=== PATIENT | female | born 1980 | race American Indian/Alaskan Native ===

== ENCOUNTER 2016-08-02 21:54 | Inpatient (IN) | payer MEDICAID ==
--- NOTE | 2016-08-02 22:33 | History and Physical Report ---
History of Present Illness Date of examination: 08/02/16 Chief complaint: ?Gestational DM at unsure date History of present illness: 35-year-old 017 at 33+3 wks (oral hx of FRANSISCO 09/17/16) presents from the office, she is a [facility] [employer] patient and I currently do not have any records. 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 She was asked to present to the hospital yesterday but due to social issues could not, she presents today. She has an oral history of being seen by [facility] for morbid obesity ~ 1 week ago. She was told infant was 36 weeks gestation, M was unaware of her diagnosis of gestational diabetes. She has an oral history of Gestational diabetes with her sixth , her seventh was apparently unremarkable. She has a history of suicide attempt with her second , she has a large vertical incisional scar on her abdomen from the attempt Past History Past Medical History: no pertinent history. 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 denies: gonorrhea, hepatitis B, hepatitis C, herpes, HIV, syphilis, trichomonas Social history: smoking, full code. denies: alcohol abuse, prescription drug abuse, IV drug use - Obstetrical History Expected Date of Delivery: 09/17/16 Actual Gestation: 33 Week(s) 3 Day(s) : 9 Para: 7 Medications and Allergies Allergies Allergy/AdvReac Type Severity Reaction Status Date / Time No Known Allergies Allergy Unverified 09/28/13 18:24 Home Medications Medication Instructions Recorded Confirmed Last Taken Type No Known Home Medications [No 09/29/13 09/29/13 Unknown History Reported Home Medications] Review of Systems Constitutional: no fever, no chills Eyes: no diplopia, no blind spots Cardiovascular: no chest pain, no syncope, no lightheadedness, no shortness of breath, no dyspnea on exertion, no high blood pressure Respiratory: no shortness of breath, no dyspnea on exertion Gastrointestinal: no abdominal pain, no nausea, no vomiting Genitourinary: no vaginal bleeding, no vaginal discharge, no contractions - Vital Signs Vital signs: Vital Signs Pulse BP 110 H 134/72 08/02/16 22:17 04/06/17 22:17 Temp Pulse Resp BP Pulse Ox 110 H 134/72 08/02/16 22:17 08/02/16 22:17 - Physical Exam Cardiovascular: Regular rate, Normal S1, Normal S2 Lungs: Positive: Clear to auscultation, Normal air movement Abdomen: Positive: normal appearance, soft. Negative: tenderness Uterus: Positive: other (unable to medical imaging technologist uterine size due to morbid obesity) Results All other labs normal. Assessment and Plan A: 35-year-old at ?33+3 weeks here for observation Issues -Obesity (BMI 62) -Grand multipara -Suspected gestational diabetes -Noncompliance suspected -Unsure gestational age P: -CMP, CBC now, POC -Growth scan and BPP -UDS -Desires permanent sterilization, signed consent -Disposition after results available - Patient Problems (1) 33 weeks gestation of Current Visit: Yes Status: Acute (2) Morbid obesity with BMI of 60.0-69.9, adult Current Visit: Yes Status: Acute (3) Grand multipara in labor in third trimester Current Visit: Yes Status: Acute (4) Gestational diabetes mellitus (GDM) affecting Current Visit: Yes Status: Suspected (5) Non-compliant patient Current Visit: Yes Status: Suspected Qualifiers: Trimester: T
[2016-08-02] MEDS ORDERED: D50W (25GM) IV PRN (22:46)
[2016-08-02 22:56] LABS: Basophils % (Auto) 0.2 % (0.0-1.8); Hemoglobin 8.8 gm/dl (10.1-14.3); Mean Corpuscular HGB Conc 32 % (30-34); Platelet Count 265 K/mm3 (140-440); Red Blood Count 4.04 M/mm3 (3.65-5.03); White Blood Count 8.6 K/mm3 (4.5-11.0)
[2016-08-02 23:01] LABS: Mean Corpuscular Volume 69 fl (79-97)
[2016-08-02 23:02] LABS: Mean Corpuscular Hemoglobin 22 pg (28-32); Red Cell Distribution Width 23.9 % (13.2-15.2)
[2016-08-02 23:03] LABS: Urine Drugs of Abuse Note Disclamer
[2016-08-02 23:13] LABS: Uric Acid 3.9 mg/dL (3.5-7.6)
[2016-08-02 23:15] LABS: Bilirubin,Urine NEG (Negative); Blood,Urine NEG (Negative); Ketones,Urine TR mg/dL (Negative); Leukocyte Esterase,Urine NEG (Negative); Mucus,Urine FEW /HPF; Nitrite,Urine NEG (Negative); RBC,Urine < 1.0 /HPF (0.0-6.0); Urobilinogen,Urine < 2.0 mg/dL (<2.0); WBC,Urine < 1.0 /HPF (0.0-6.0)
[2016-08-03 00:17] LABS: Alanine Aminotransferase 10 units/L (7-56); Albumin 2.8 g/dL (3.9-5); Albumin/Globulin Ratio 0.8 %; Alkaline Phosphatase 114 units/L (35-129); Anion Gap 18 mmol/L; BUN/Creatinine Ratio 8.33; Bilirubin,Total 0.3 mg/dL (0.1-1.2); Blood Urea Nitrogen 5 mg/dL (7-17); Calcium 8.2 mg/dL (8.4-10.2); Carbon Dioxide 22 mmol/L (22-30); Chloride 96.6 mmol/L (98-107); Glucose 273 mg/dL (65-100); Potassium 3.4 mmol/L (3.6-5.0); Sodium 133 mmol/L (137-145); Total Protein 6.4 g/dL (6.3-8.2)
[2016-08-03] MEDS ORDERED: D50W (25GM) IV PRN ×2 (04:48→04:59)
[2016-08-03] MEDS ORDERED: DIABETA PO SCH (08:00)
--- NOTE | 2016-08-03 08:02 | Admit Criteria Form ---
Admission Criteria Documentation: OBSTETRIC AND GYNECOLOGIC DISEASE GRG Clinical Indications for Admission to Inpatient Care (Place 'X' for any and all applicable criteria): Hospital admission is needed for appropriate care of the patient because of 1 or more of the following (1)(2)(3): [ ]I. Hemodynamic instability, as indicated by 1 or more of the following (1)( 2)(3)(4)(5): [ ]a) Vital signs or other findings not as expected for chronic patient condition or baseline [ ]b) Instability indicated by 1 or more of the following: [ ]i) Hypotension [ ]ii) Symptomatic tachycardia unresponsive to treatment (eg, analgesia, fluids, sedation as indicated) [ ]iii) Inadequate perfusion indicated by 1 or more of the following: [ ]A. Lactic acidosis (greater than 2 mmol/ L) [ ]B. New abnormal capillary refill ( greater than 3 seconds) [ ]C. Reduced urine output [ ]D. New altered mental status [ ]iv) Orthostatic vital sign changes unresponsive to treatment (eg, fluids) [ ]v) Multiple IV fluid boluses required to maintain adequate blood pressure or perfusion [ ]vi) IV inotropic or vasopressor medication required to maintain adequate blood pressure or perfusion [ ]II. Obstetric infection requiring hospitalization indicated by 1 or more of the following(13)(14): [ ]a) Chorioamnionitis [ ]b) Endometritis (except mild endometritis) [ ]c) Pelvic abscess [ ]d) Peritonitis [ ]e) Septic pelvic thrombophlebitis [ ]III. Amniotic fluid or pulmonary embolism(4)(5)(6) [ ]IV. Suspected peritonitis or ectopic requiring monitoring beyond scope of 24 hours or observation care(7)(8) [ ]V. compromise requiring hospitalization indicated by ALL of the following(9)(10): [ ]a) compromise indicated by 1 or more of the following(11): [ ]i) Abnormal heart rate monitoring [ ]ii) Abnormal contraction stress test [ ]iii) Abnormal biophysical profile [ ]iv) Abnormal Doppler flow in vessels (ie, Doppler velocimetry) (12) [ ]b) Persistence of compromise indicators during evaluation and observation monitoring [ ]. Ovarian hyperstimulation syndrome requiring hospitalization[A] indicated by ALL of the following(15): [ ]a) Recent ovarian stimulation with gonadotropins, or evidence on ultrasound of spontaneous emergence of large number of ovarian follicles [ ]b) Evidence of severe ovarian hyperstimulation syndrome indicated by 1 or more of the following: [ ]i) Abdominal pain unresponsive to oral therapy [ ]ii) Acute respiratory distress syndrome [ ]iii) Electrolyte imbalance ( eg, hyponatremia, hyperkalemia) [ ]iv) Elevated liver enzymes [ ]v) Evidence of thromboembolism [ ]vi) Hemoconcentration (hematocrit greater than 45 % (0.45)) [ ]vii) Inability to maintain oral intake adequate to prevent hemoconcentration [ ]viii) Marked hypotension from baseline (eg, SBP 20 mmHg below patients usual pressure) [ ]ix) Oliguria or anuria [ ]x) Ovarian torsion [ ]xi) Pleural or pericardial effusion on x-ray or echocardiogram [ ]xii) Rapid increase in serum creatinine to greater than 1.2 mg/dL (106 micromoles/L) or creatinine clearance less than 50 mL/min/1.73m2 (0.84 mL/ sec/1.73m2) [ ]xiii) Ruptured ovarian cyst with hemorrhage [ ]xiv) Severe abdominal pain or peritoneal signs [ ]xv) Tense ascites that cannot be managed with paracentesis in outpatient setting [ ]VII.Pelvic infection requiring hospitalization indicated by 1 or more of the following (16): [ ]a) Outpatient treatment has failed or is not appropriate (eg, inpatient monitoring required) [ ]b) Pelvic abscess [ ]c) Surgical emergency cannot be excluded (eg, rigid abdomen) [ ]d) Vomiting precluding outpatient and observation care management VIII. loss complications requiring inpatient medical treatment indicated by 1 or more of the following (4)(7)(9): [ ]a) Fever [ ]b) Peritonitis [ ]c) Sepsis [ ]d) Severe abdominal pain [ ]IX. or patient requiring monitoring for severe heart failure, pulmonary disease, or other comorbid condition (eg, peripartum cardiomyopathy) (4)(17) [ ]X. patient with rupture of membranes requiring hospitalization indicated by ANY ONE of the following: [ ]a) Chorioamnionitis, cloudy amniotic fluid, or other evidence of infection [ ]b) compromise or other need for monitoring (11) [ ]c) Gestation longer than 23 weeks and ANY ONE of the following: [ ]i) Abnormal (noncephalic) presentation [ ]ii) Inadequate home environment (eg, home too far from hospital, unable to rapidly return to hospital) [ ]d) Temperature greater than 100.4 degrees F (38 degrees C)( oral) [ ]e) Threatened labor requiring monitoring beyond scope (eg, over 24 hours) of observation Care [ ] XI. complications, including severe lacerations, infections, or retained placenta (19) [ ] XII.Uterine bleeding with high-risk features indicated by ANY ONE of the following (4): [ ]a) Active major hemorrhage (eg, hemorrhage) [ ]b) Coagulopathy with active bleeding [ ]c) Gestational trophoblastic disease (eg, molar ) (20 ) [ ]d) (longer than 23 weeks) and ANY ONE of the following: [ ]i) Pain [ ]ii) Placental abruption, known or suspected [ ]iii) Placenta accrete, known or suspected(21) [ ]iv) Placenta previa, known or suspected [ ]v) Vasa previa [ ]e) Severe anemia [X ]XIII. Obstetric or Gynecologic Disease, condition or symptom for which ANY ONE of the following: [X ]a) Emergency and observation care have failed or are not considered appropriate ( Also use General Criteria: Observation Care Criteria as appropriate) [ ]b) Presence of a General Admission Criteria or Pediatric General Admission Criteria The original [facility] [employer] content created by [facility] has been revised. The portions of the content which have been revised are identified through the use of italic text or in bold, and [facility] has neither reviewed nor approved the modified material.All other unmodified content is copyright [facility]. Please see references footnoted in the original [facility] edition 2016 Admission Criteria Met: Yes
--- NOTE | 2016-08-03 08:51 | Consultation ---
History of Present Illness Consult date: 08/03/16 Requesting physician: CLAY CORADO History of present illness: 35-year-old 017 at 33+3 wks (oral hx of FRANSISCO 09/17/16) ( Patient states she had US at [facility] at 19 weeks and "they gave me due date of 09/17/16)presents from the office, she is a [facility] [employer]. 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 She was asked to present to the hospital 2 days ago but due to social issues could not, she presents today. She has an oral history of being seen by [facility] for morbid obesity ~ 1 week ago. She was told infant was 36 weeks gestation, MFM was unaware of her diagnosis of gestational diabetes. [facility] US done 07/24/16 Verbal ([facility] will Fax) - 3038 grams - 6#11" - 100% She has an oral history of Gestational diabetes with her sixth , her seventh was apparently unremarkable With This Preg she reports taking Insulin She has a history of suicide attempt with her second , she has a large vertical incisional scar on her abdomen from the attempt Past History Past Medical History: no pertinent history. 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 denies: gonorrhea, hepatitis B, hepatitis C, herpes, HIV, syphilis, trichomonas Social history: smoking, full code. denies: alcohol abuse, prescription drug abuse, IV drug use - Obstetrical History Expected Date of Delivery: 09/17/16 Actual Gestation: 33 Week(s) 3 Day(s) : 9 Para: 7 Past History Past Medical History: no pertinent history. 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 denies: gonorrhea, hepatitis B, hepatitis C, herpes, HIV, syphilis, trichomonas - Obstetrical History : 9 Medications and Allergies Allergies Allergy/AdvReac Type Severity Reaction Status Date / Time No Known Allergies Allergy Unverified 09/28/13 18:24 Home Medications Medication Instructions Recorded Confirmed Last Taken Type No Known Home Medications [No 09/29/13 09/29/13 Unknown History Reported Home Medications] Active Meds: Active Medications Dextrose (D50w (25gm)) 50 ml IV PRN PRN PRN Reason: Hypoglycemia Glyburide (Diabeta) 5 mg PO BIDDIAB [facility] Insulin Human Regular (Novolin R) 0 units SUB-Q PC@0930,1330,1830 PAULINE PRN Reason: Protocol Insulin Human Regular (Novolin R) 0 units SUB-Q QHS PAULINE PRN Reason: Protocol Potassium Chloride (K-Dur) 40 meq PO QDAY [facility] Stop: 08/04/16 10:01 - Vital Signs Vital signs: Vital Signs Temp Pulse Resp BP 98.5 F 110 H 20 134/72 08/02/16 22:17 08/02/16 22:17 08/02/16 22:17 08/02/16 22:17 Temp Pulse Resp BP Pulse Ox 98.5 F 101 H 20 130/74 08/02/16 22:17 08/03/16 08:39 08/02/16 22:17 08/03/16 08:39 Results Result Diagrams: 08/02/16 Unknown 08/02/16 Unknown Abnormal lab results 08/02/16 08/02/16 08/02/16 Range/Units Unknown Unknown Unknown Hgb 8.8 L (10.1-14.3) gm/dl Hct 28.0 L (30.3-42.9) % MCV 69 L (79-97) fl MCH 22 L (28-32) pg RDW 23.9 H (13.2-15.2) % Seg Neutrophils % 72.5 H (40.0-70.0) % Sodium 133 L (137-145) mmol/L Potassium 3.4 L (3.6-5.0) mmol/L Chloride 96.6 L (98-107) mmol/L BUN 5 L (7-17) mg/dL Creatinine 0.6 L (0.7-1.2) mg/dL Glucose 273 H (65-100) mg/dL Hemoglobin A1c 7.4 H (4-6) % Calcium 8.2 L (8.4-10.2) mg/dL Albumin 2.8 L (3.9-5) g/dL All other labs normal. Assessment and Plan 1. Sainz IUP at 33 3/7 weeks by [facility] US Per Patient done at 19 weeks 2. GDM - Uncontrolled - HbA1c at 7.4% 3. Grand Multip 4. MO - 384# 3. 5. Anemia 6. H/O Suicide attempt in past 7. Noncompliance 8. LGA Recommendations: 1. Accuchecks fastings and 2 hour PP's and 3 am 2. Start split dose Insulin - 50 Units NPH and 24 units Reg before breakfast, 20 units Reg before dinner and 20 units NPH at bedtime - (This is a conservative dose as weight based is Much More. 3. 2199 ADA diet 4. Diabetic and Insulin Teaching 5. Fe SO4 325 TID 6. BPP Twice per week 7. [facility] 8. [facility] to F[facility] US (Only seen once at [facility] on 07/24/16) 9. US Sliding Scale( BS-100/20 = # units of Insulin) for BS's over 160
--- NOTE | 2016-08-03 09:22 | Progress Note ---
Assessment and Plan A: 35-year-old at ?33+4 weeks here for observation -s/p BPP 12/04 (on 08/02/16) Issues -Morbid Obesity (BMI 62) -Grand multipara -GDM (poorly controlled) -Non-compliance suspected - Macrosomia P: -MFM consult reviewed, thanks -Glyburide discontinued -Have requested dating sono -Continue care per MFM recommendations - Patient Problems (1) 33 weeks gestation of Current Visit: Yes Status: Acute (2) Morbid obesity with BMI of 60.0-69.9, adult Current Visit: Yes Status: Acute (3) Grand multipara in labor in third trimester Current Visit: Yes Status: Acute (4) Gestational diabetes mellitus (GDM) affecting Current Visit: Yes Status: Suspected (5) Non-compliant patient Current Visit: Yes Status: Suspected Qualifiers: Trimester: T (6) Anemia affecting Current Visit: Yes Status: Acute Subjective - Subjective Date of service: 08/03/16 Principal diagnosis: IUP at 33+4 wks, Gest DM, Morbod Obsity, Grandmultip Interval history: Patient seen, stable. Patient reports: new complaints, movement normal, no loss of fluid, no vaginal bleeding, no contractions Objective - Vital Signs Vital Signs: Vital Signs - 12hr 08/02/16 08/02/16 08/02/16 22:17 22:39 22:49 Temperature 98.5 F Pulse Rate 110 H 100 H 100 H Pulse Rate [ Right] Respiratory 20 Rate Blood Pressure 134/72 139/65 138/63 Blood Pressure [Left Arm] O2 Sat by Pulse Oximetry 08/02/16 08/03/16 08/03/16 22:59 06:32 08:39 Temperature 96.8 F L Pulse Rate 107 H 96 H 101 H Pulse Rate [ 101 H Right] Respiratory 20 Rate Blood Pressure 147/67 136/70 130/74 Blood Pressure 130/74 [Left Arm] O2 Sat by Pulse 96 Oximetry - Labs Labs: Abnormal Labs 08/02/16 08/02/16 08/02/16 Unknown Unknown Unknown Hgb 8.8 L Hct 28.0 L MCV 69 L MCH 22 L RDW 23.9 H Seg Neutrophils % 72.5 H Sodium 133 L Potassium 3.4 L Chloride 96.6 L BUN 5 L Creatinine 0.6 L Glucose 273 H Hemoglobin A1c 7.4 H Calcium 8.2 L Albumin 2.8 L Laboratory Results - last 24 hr 08/02/16 08/02/16 08/02/16 22:06 22:06 Unknown WBC 8.6 RBC 4.04 Hgb 8.8 L Hct 28.0 L MCV 69 L MCH 22 L MCHC 32 RDW 23.9 H Plt Count 265 Lymph % (Auto) 20.3 Calloway % (Auto) 6.0 Eos % (Auto) 1.0 Baso % (Auto) 0.2 Lymph # 1.8 Calloway # 0.5 Eos # 0.1 Baso # 0.0 Seg Neutrophils % 72.5 H Seg Neutrophils # 6.3 Sodium Potassium Chloride Carbon Dioxide Anion Gap BUN Creatinine Estimated GFR BUN/Creatinine Ratio Glucose Hemoglobin A1c Uric Acid Calcium Total Bilirubin AST ALT Alkaline Phosphatase Lactate Dehydrogenase Total Protein Albumin Albumin/Globulin Ratio Urine Color Yellow Urine Turbidity Clear Urine pH 6.0 Ur Specific [place] 1.029 Urine Protein 100 mg/dl Urine Glucose (UA) >=500 Urine Ketones Tr Urine Blood Neg Urine Nitrite Neg Urine Bilirubin Neg Urine Urobilinogen < 2.0 Ur Leukocyte Esterase Neg Urine WBC (Auto) < 1.0 Urine RBC (Auto) < 1.0 U Epithel Cells (Auto) 1.0 Urine Mucus Few Urine Opiates Screen Presumptive negative Urine Methadone Screen Presumptive negative Ur Barbiturates Screen Presumptive negative Ur Phencyclidine Scrn Presumptive negative Ur Amphetamines Screen Presumptive negative U Benzodiazepines Scrn Presumptive negative Urine Cocaine Screen Presumptive negative U Marijuana (THC) Screen Presumptive negative Drugs of Abuse Note Disclamer 08/02/16 08/02/16 08/02/16 Unknown Unknown Unknown WBC RBC Hgb Hct MCV MCH MCHC RDW Plt Count Lymph % (Auto) Calloway % (Auto) Eos % (Auto) Baso % (Auto) Lymph # Calloway # Eos # Baso # Seg Neutrophils % Seg Neutrophils # Sodium 133 L Potassium 3.4 L Chloride 96.6 L Carbon Dioxide 22 Anion Gap 18 BUN 5 L Creatinine 0.6 L Estimated GFR > 60 BUN/Creatinine Ratio 8.33 Glucose 273 H Hemoglobin A1c 7.4 H Uric Acid 3.9 Calcium 8.2 L Total Bilirubin 0.3 AST 16 15 ALT 11 10 Alkaline Phosphatase 114 Lactate Dehydrogenase 140 Total Protein 6.4 Albumin 2.8 L Albumin/Globulin Ratio 0.8 Urine Color Urine Turbidity Urine pH Ur Specific [place] Urine Protein Urine Glucose (UA) Urine Ketones Urine Blood Urine Nitrite Urine Bilirubin Urine Urobilinogen Ur Leukocyte Esterase Urine WBC (Auto) Urine RBC (Auto) U Epithel Cells (Auto) Urine Mucus Urine Opiates Screen Urine Methadone Screen Ur Barbiturates Screen Ur Phencyclidine Scrn Ur Amphetamines Screen U Benzodiazepines Scrn Urine Cocaine Screen U Marijuana (THC) Screen Drugs of Abuse Note
[2016-08-03] MEDS ORDERED: WELLBUTRIN PO SCH (11:00)
--- NOTE | 2016-08-03 11:00 | Ultrasound Report ---
ULTRASOUND BIOPHYSICAL PROFILE: History: well being Technique: Transabdominal ultrasound with Doppler interrogation. 2 - breathing movements 2 - movements 2 - posture and tone 2 - Qualitative amniotic fluid volume 8 - TOTAL SCORE OF POSSIBLE 8 Heart Rate (bpm) 143
[2016-08-03] MEDS: K-DUR PO SCH (11:16)
[2016-08-03] MEDS: HABITROL TD SCH (11:17)
--- NOTE | 2016-08-03 11:23 | Ultrasound Report ---
OB ULTRASOUND Technique: Transabdominal ultrasound with Doppler interrogation. Gestation: Single Position: Cephalic Amniotic Fluid: Normal JUAN JOSE = 22.4 cm Placenta: Fundal Placental Grade: 2 Heart Rate: 145 BPM Cervical length: 3.5 cm (Normal > 3 cm) It is too early for a anatomical survey NEUROANATOMY VISUALIZED: ANATOMY VISUALIZED: Stomach Bladder Diaphragm Heart Abd. Cord Insert SPINE VISUALIZED: Limited spine due to position The following are not demonstrated due to maternal body habitus or lie: Neuro anatomy, spine, kidneys, four-chamber heart and three-vessel cord BPD: 9.1 cm = 36 w 5 d HC: 32.2 cm = 36 w 2 d AC: 36.6 cm = 40 w 4 d FL: 7.9 cm = 40 w 2 d HC/AC Ratio: 0.88 Cephalic Index: 82.7 Estimated Weight: 3772 grams LMP: 01/12/16 Clinical age = 29 w 0 d EDC: 10/18/16 US Gest. Age = 38 w 3 d EDC: 08/13/16
[2016-08-03] MEDS: WELLBUTRIN SR PO SCH ×2 (11:30→23:49)
--- NOTE | 2016-08-04 07:05 | Progress Note ---
Assessment and Plan A: 35-year-old at ?33+5 weeks here for observation -s/p BPP 12/04 (on 08/02/16) Issues -Morbid Obesity (BMI 62) -Grand multipara -GDM (poorly controlled) -Non-compliance suspected -Hx of suicide attempt (w/ 2nd only) -Hx of suicide attempt (w/ 2nd only) - Macrosomia POC - 150 (F), 150 to 180 (2hr PP) Insulin Regimine: 54N/28R in AM 24R in PM 20N QHS P: -MFM consult reviewed, thanks -She is status post diabetic teaching -Continue present care -Disposition per MFM - Patient Problems (1) 33 weeks gestation of Current Visit: Yes Status: Acute (2) Morbid obesity with BMI of 60.0-69.9, adult Current Visit: Yes Status: Acute (3) Grand multipara in labor in third trimester Current Visit: Yes Status: Acute (4) Gestational diabetes mellitus (GDM) affecting Current Visit: Yes Status: Suspected (5) Non-compliant patient Current Visit: Yes Status: Suspected Qualifiers: Trimester: T (6) Anemia affecting Current Visit: Yes Status: Acute Subjective - Subjective Date of service: 08/04/16 Principal diagnosis: IUP at 33+5 wks, Gest DM, Morbod Obsity, Grandmultip Interval history: Patient seen, stable. [id number] still poorly controlled, fasting is 150 and 2 hour postprandial ranges from 150 to 180's Patient reports: new complaints, movement normal, no loss of fluid, no vaginal bleeding, no contractions Objective - Vital Signs Vital Signs: Vital Signs - 12hr 08/03/16 08/03/16 08/03/16 20:18 20:20 23:59 Temperature 98.1 F Pulse Rate 96 H 100 H Pulse Rate [ 96 H Right] Respiratory 20 Rate Blood Pressure 133/78 110/49 Blood Pressure 133/78 [Left Arm] 08/04/16 08/04/16 08/04/16 00:00 03:10 03:12 Temperature 98.2 F 98.2 F Pulse Rate 95 H Pulse Rate [ 100 H 95 H Right] Respiratory 20 20 Rate Blood Pressure 137/69 Blood Pressure 111/64 137/69 [Left Arm] - Labs Labs: Abnormal Labs 08/02/16 08/02/1617 Unknown Unknown Unknown Hgb 8.8 L Hct 28.0 L MCV 69 L MCH 22 L RDW 23.9 H Seg Neutrophils % 72.5 H Sodium 133 L Potassium 3.4 L Chloride 96.6 L BUN 5 L Creatinine 0.6 L Glucose 273 H POC Glucose Hemoglobin A1c 7.4 H Calcium 8.2 L Albumin 2.8 L 08/03/16 08/03/16 08/03/16 00:07 06:28 11:37 Hgb Hct MCV MCH RDW Seg Neutrophils % Sodium Potassium Chloride BUN Creatinine Glucose POC Glucose 228 H 191 H 169 H Hemoglobin A1c Calcium Albumin 08/03/16 08/03/16 08/04/16 16:36 21:57 06:33 Hgb Hct MCV MCH RDW Seg Neutrophils % Sodium Potassium Chloride BUN Creatinine Glucose POC Glucose 154 H 182 H 150 H Hemoglobin A1c Calcium Albumin Laboratory Results - last 24 hr 08/03/16 08/03/16 08/03/16 00:07 06:28 11:37 POC Glucose 228 H 191 H 169 H 08/03/16 08/03/16 08/04/16 16:36 21:57 06:33 POC Glucose 154 H 182 H 150 H
[2016-08-04] MEDS: WELLBUTRIN SR PO SCH (21:14)
--- NOTE | 2016-08-05 05:00 | Progress Note ---
Assessment and Plan A: 35-year-old at ?33+5 weeks here for observation -s/p BPP 12/04 (on 08/02/16) Issues -Morbid Obesity (BMI 62) -Grand multipara -GDM (poorly controlled) -Non-compliance suspected -Hx of suicide attempt (w/ 2nd only) - Macrosomia -s/p Growth (on 08/02/16) - EFW 3772 g (clinical age is 29wks, Sono age is 38wks) POC (08/04/16)--> 150 (04:00 am), 172 (10:00), 207 (13:33), 134 (18:46), 200 (20: 56), 174 (22:44) Insulin Regimine: 54N/28R in AM ---> 56N/30R 24R in PM ---> 26R 20N QHS ---> 22N P: -Insulin regimen increase by 2 units (see note above) -BPP today -Continue present care -Disposition per [facility] - Patient Problems (1) 33 weeks gestation of Current Visit: Yes Status: Acute (2) Morbid obesity with BMI of 60.0-69.9, adult Current Visit: Yes Status: Acute (3) Grand multipara in labor in third trimester Current Visit: Yes Status: Acute (4) Gestational diabetes mellitus (GDM) affecting Current Visit: Yes Status: Suspected (5) Non-compliant patient Current Visit: Yes Status: Suspected Qualifiers: Trimester: T (6) Anemia affecting Current Visit: Yes Status: Acute Subjective - Subjective Date of service: 08/05/16 Principal diagnosis: IUP at 33+6 wks, Gest DM, Morbod Obsity, Grandmultip Interval history: 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 with present regimen Patient reports: new complaints, movement normal, no loss of fluid, no vaginal bleeding, no contractions Objective - Vital Signs Vital Signs: Vital Signs - 12hr 08/04/16 08/04/16 08/04/16 19:42 19:45 19:47 Temperature Pulse Rate 94 H 87 Respiratory 22 Rate Blood Pressure 139/73 O2 Sat by Pulse 94 97 Oximetry 08/04/16 08/04/16 08/04/16 19:49 19:52 19:57 Temperature Pulse Rate 35 L 92 H 97 H Respiratory Rate Blood Pressure O2 Sat by Pulse 83 L 98 97 Oximetry 08/04/16 08/04/16 08/04/16 20:02 20:07 20:08 Temperature Pulse Rate 93 H 79 88 Respiratory Rate Blood Pressure O2 Sat by Pulse 96 97 94 Oximetry 08/04/16 08/04/16 08/04/16 20:12 20:13 20:17 Temperature Pulse Rate 82 83 87 Respiratory Rate Blood Pressure O2 Sat by Pulse 94 92 99 Oximetry 08/04/16 08/04/16 08/04/16 20:59 23:52 23:55 Temperature 97.9 F Pulse Rate 79 92 H Respiratory Rate Blood Pressure 135/65 O2 Sat by Pulse 85 93 Oximetry 08/04/16 08/05/16 08/05/16 23:58 04:05 04:06 Temperature 98.3 F Pulse Rate 99 H 93 H Respiratory 20 Rate Blood Pressure 150/67 O2 Sat by Pulse 94 93 Oximetry 08/05/16 08/05/16 04:08 04:09 Temperature 98.0 F Pulse Rate 94 H Respiratory 22 Rate Blood Pressure 148/67 O2 Sat by Pulse Oximetry - Labs Labs: Abnormal Labs 08/02/16 08/02/16 08/02/16 Unknown Unknown Unknown Hgb 8.8 L Hct 28.0 L MCV 69 L MCH 22 L RDW 23.9 H Seg Neutrophils % 72.5 H Sodium 133 L Potassium 3.4 L Chloride 96.6 L BUN 5 L Creatinine 0.6 L Glucose 273 H POC Glucose Hemoglobin A1c 7.4 H Calcium 8.2 L Albumin 2.8 L 08/03/16 08/03/16 08/03/16 00:07 06:28 11:37 Hgb Hct MCV MCH RDW Seg Neutrophils % Sodium Potassium Chloride BUN Creatinine Glucose POC Glucose 228 H 191 H 169 H Hemoglobin A1c Calcium Albumin 08/03/16 08/03/16 08/04/16 16:36 21:57 06:33 Hgb Hct MCV MCH RDW Seg Neutrophils % Sodium Potassium Chloride BUN Creatinine Glucose POC Glucose 154 H 182 H 150 H Hemoglobin A1c Calcium Albumin 08/04/16 08/04/16 08/04/16 10:42 13:33 18:46 Hgb Hct MCV MCH RDW Seg Neutrophils % Sodium Potassium Chloride BUN Creatinine Glucose POC Glucose 172 H 207 H 134 H Hemoglobin A1c Calcium Albumin 08/04/16 08/04/16 20:56 22:44 Hgb Hct MCV MCH RDW Seg Neutrophils % Sodium Potassium Chloride BUN Creatinine Glucose POC Glucose 200 H 174 H Hemoglobin A1c Calcium Albumin Laboratory Results - last 24 hr 08/04/16 08/04/16 08/04/16 06:33 10:42 13:33 POC Glucose 150 H 172 H 207 H 08/04/16 08/04/16 08/04/16 18:46 20:56 22:44 POC Glucose 134 H 200 H 174 H
--- NOTE | 2016-08-05 10:03 | Ultrasound Report ---
ULTRASOUND BIOPHYSICAL PROFILE: History: Gestational diabetes, well being Technique: Transabdominal ultrasound with Doppler interrogation. 0 - breathing movements 2 - movements 2 - posture and tone 2 - Qualitative amniotic fluid volume 6 - TOTAL SCORE OF POSSIBLE 8 Heart Rate (bpm) 158
[2016-08-05] MEDS: K-DUR PO SCH (10:32)
[2016-08-05] MEDS: WELLBUTRIN SR PO SCH ×2 (10:32→22:44)
[2016-08-05] MEDS: FEOSOL PO SCH ×2 (10:33→22:45)
[2016-08-05] MEDS: HABITROL TD SCH (10:33)
[2016-08-05] MEDS: COLACE PO SCH (22:45)
[2016-08-06] MEDS: COLACE PO SCH ×2 (10:35→22:16)
[2016-08-06] MEDS: WELLBUTRIN SR PO SCH ×2 (10:35→22:16)
[2016-08-06] MEDS: FEOSOL PO SCH ×2 (10:35→22:16)
[2016-08-06] MEDS: HABITROL TD SCH ×2 (10:36→10:40)
--- NOTE | 2016-08-06 11:13 | Progress Note ---
Assessment and Plan - Patient Problems (1) 33 weeks gestation of Onset Date: 08/06/16 Current Visit: Yes Status: Acute Plan to address problem: A: 35-year-old at 33 6/7 weeks -s/p BPP 10/04 (on 08/05/16) Issues -Morbid Obesity (BMI 62) -Grand multipara -GDM (poorly controlled) -Non-compliance suspected -Hx of suicide attempt (w/ 2nd only) - Macrosomia -s/p Growth (on 08/02/16) - EFW 3772 g (clinical age is 29wks, Sono age is 38wks) POC (08/04/16)--> 150 (04:00 am), 172 (10:00), 207 (13:33), 134 (18:46), 200 (20: 56), 174 (22:44) Insulin Regimine: 54N/28R in AM ---> 56N/30R 24R in PM ---> 26R 20N QHS ---> 22N P: -Insulin regimen increase by 2 units (see note above) -BPP twice weekly -Continue present care -Disposition per [facility] Subjective - Subjective Date of service: 08/06/16 Principal diagnosis: IUP at 33 6/7 wks, Gest DM - uncontrolled, Morbid Obesity, Grandmultip Interval history: Pt is feeling well and wants to go home. She denies contractions, ROM or bleeding. +FM Patient reports: new complaints, movement normal, no loss of fluid, no vaginal bleeding, no contractions Objective - Vital Signs Vital Signs: Vital Signs - 12hr 08/05/16 08/05/16 08/05/16 23:14 23:15 23:19 Temperature Pulse Rate 84 90 Pulse Rate [ Right] Respiratory Rate Blood Pressure 133/79 Blood Pressure [Left Arm] O2 Sat by Pulse 86 97 92 Oximetry 08/05/16 08/06/16 08/06/16 23:20 02:01 02:03 Temperature 97.8 F 98.2 F Pulse Rate 90 95 H Pulse Rate [ 95 H Right] Respiratory 20 22 Rate Blood Pressure 128/60 Blood Pressure 128/60 [Left Arm] O2 Sat by Pulse 97 Oximetry 08/06/16 08/06/16 08/06/16 06:36 07:35 08:00 Temperature 98.2 F Pulse Rate 94 H 90 Pulse Rate [ 90 Right] Respiratory 20 Rate Blood Pressure 116/66 Blood Pressure 116/66 [Left Arm] O2 Sat by Pulse 98 Oximetry - Exam Abdomen: Present: normal appearance, soft Uterine Contraction Monitor Mode: External - Labs Labs: Abnormal Labs 08/02/16 08/02/16 08/02/16 Unknown Unknown Unknown Hgb 8.8 L Hct 28.0 L MCV 69 L MCH 22 L RDW 23.9 H Seg Neutrophils % 72.5 H Sodium 133 L Potassium 3.4 L Chloride 96.6 L BUN 5 L Creatinine 0.6 L Glucose 273 H POC Glucose Hemoglobin A1c 7.4 H Calcium 8.2 L Albumin 2.8 L 08/03/16 08/03/16 08/03/16 00:07 06:28 11:37 Hgb Hct MCV MCH RDW Seg Neutrophils % Sodium Potassium Chloride BUN Creatinine Glucose POC Glucose 228 H 191 H 169 H Hemoglobin A1c Calcium Albumin 08/03/16 08/03/16 08/04/16 16:36 21:57 06:33 Hgb Hct MCV MCH RDW Seg Neutrophils % Sodium Potassium Chloride BUN Creatinine Glucose POC Glucose 154 H 182 H 150 H Hemoglobin A1c Calcium Albumin 08/04/16 08/04/16 08/04/16 10:42 13:33 18:46 Hgb Hct MCV MCH RDW Seg Neutrophils % Sodium Potassium Chloride BUN Creatinine Glucose POC Glucose 172 H 207 H 134 H Hemoglobin A1c Calcium Albumin 08/04/16 08/04/16 08/05/16 20:56 22:44 06:36 Hgb Hct MCV MCH RDW Seg Neutrophils % Sodium Potassium Chloride BUN Creatinine Glucose POC Glucose 200 H 174 H 145 H Hemoglobin A1c Calcium Albumin 08/05/16 08/05/16 10:42 18:43 Hgb Hct MCV MCH RDW Seg Neutrophils % Sodium Potassium Chloride BUN Creatinine Glucose POC Glucose 177 H 146 H Hemoglobin A1c Calcium Albumin Laboratory Results - last 24 hr 08/05/16 08/05/16 08/05/16 10:42 14:43 18:43 POC Glucose 177 H 100 146 H 08/05/16 08/06/16 22:46 06:24 POC Glucose 75 85
--- NOTE | 2016-08-07 00:30 | Progress Note ---
Assessment and Plan IMPRESSIONS: 1. IUP @ 34 weeks 2. GDM with improved glucose control on her current insulin regimen and diet 3. Morbid obesity 4. Based on her current glucose control, she should be evaluated for outpatient care and surveillance RECOMMENDATIONS: 1. Discharge home with antepartum surveillance, and adjustment to her insulin regimen 2. Weekly outpatient management of her GDM Subjective - Subjective Date of service: 08/06/16 (She is without complaints) Principal diagnosis: IUP at 33 6/7 wks, Gest DM - uncontrolled, Morbid Obesity, Grandmultip Patient reports: new complaints, movement normal, no loss of fluid, no vaginal bleeding, no contractions Objective - Vital Signs Vital Signs: Vital Signs - 12hr 08/06/16 08/06/16 08/06/16 16:12 16:37 16:38 Temperature Pulse Rate 81 87 85 Pulse Rate [ Right] Respiratory Rate Blood Pressure 126/69 Blood Pressure [Left Arm] O2 Sat by Pulse 94 94 Oximetry 08/06/16 08/06/16 08/06/16 16:40 16:42 16:44 Temperature 98.1 F Pulse Rate 85 86 Pulse Rate [ 81 Right] Respiratory 20 Rate Blood Pressure Blood Pressure 126/69 [Left Arm] O2 Sat by Pulse 95 94 Oximetry 08/06/16 08/06/16 08/06/16 16:47 19:48 19:52 Temperature 97.8 F Pulse Rate 88 86 Pulse Rate [ 86 Right] Respiratory 18 Rate Blood Pressure 127/75 Blood Pressure 127/65 [Left Arm] O2 Sat by Pulse 97 Oximetry 08/06/16 23:32 Temperature 98.0 F Pulse Rate 93 H Pulse Rate [ 97 H Right] Respiratory 20 Rate Blood Pressure 137/67 Blood Pressure 137/67 [Left Arm] O2 Sat by Pulse Oximetry - Exam Narrative Exam: USG noted reassuring BPP score of 8/8, with normal JUAN JOSE - Labs Labs: Abnormal Labs 08/02/16 08/02/16 08/02/16 Unknown Unknown Unknown Hgb 8.8 L Hct 28.0 L MCV 69 L MCH 22 L RDW 23.9 H Seg Neutrophils % 72.5 H Sodium 133 L Potassium 3.4 L Chloride 96.6 L BUN 5 L Creatinine 0.6 L Glucose 273 H POC Glucose Hemoglobin A1c 7.4 H Calcium 8.2 L Albumin 2.8 L 08/03/16 08/03/16 08/03/16 00:07 06:28 11:37 Hgb Hct MCV MCH RDW Seg Neutrophils % Sodium Potassium Chloride BUN Creatinine Glucose POC Glucose 228 H 191 H 169 H Hemoglobin A1c Calcium Albumin 08/03/16 08/03/16 08/04/16 16:36 21:57 06:33 Hgb Hct MCV MCH RDW Seg Neutrophils % Sodium Potassium Chloride BUN Creatinine Glucose POC Glucose 154 H 182 H 150 H Hemoglobin A1c Calcium Albumin 08/04/16 08/04/16 08/04/16 10:42 13:33 18:46 Hgb Hct MCV MCH RDW Seg Neutrophils % Sodium Potassium Chloride BUN Creatinine Glucose POC Glucose 172 H 207 H 134 H Hemoglobin A1c Calcium Albumin 08/04/16 08/04/16 08/05/16 20:56 22:44 06:36 Hgb Hct MCV MCH RDW Seg Neutrophils % Sodium Potassium Chloride BUN Creatinine Glucose POC Glucose 200 H 174 H 145 H Hemoglobin A1c Calcium Albumin 08/05/16 08/05/16 08/06/16 10:42 18:43 10:33 Hgb Hct MCV MCH RDW Seg Neutrophils % Sodium Potassium Chloride BUN Creatinine Glucose POC Glucose 177 H 146 H 114 H Hemoglobin A1c Calcium Albumin Laboratory Results - last 24 hr 08/05/16 08/05/16 08/05/16 10:42 14:43 18:43 POC Glucose 177 H 100 146 H 08/05/16 08/06/16 08/06/16 22:46 06:24 07:33 POC Glucose 75 85 99 08/06/16 10:33 POC Glucose 114 H
--- NOTE | 2016-08-07 08:08 | Progress Note ---
Assessment and Plan - Patient Problems (1) 33 weeks gestation of Onset Date: 08/06/16 Current Visit: Yes Status: Acute Plan to address problem: A: 35-year-old at 34 0/7 weeks -s/p BPP 8/8 (on 08/06/16) Issues -Morbid Obesity (BMI 62) -Grand multipara -GDM (poorly controlled) -Non-compliance suspected -Hx of suicide attempt (w/ 2nd only) - Macrosomia -s/p Growth (on 08/02/16) - EFW 3772 g (clinical age is 29wks, Sono age is 38wks) POC (08/06/16)--> 99 (04:00 am), 114 (08:00), 116 (16:00), 116 (20:00), POC (08/07/16)--> 83 (04:00 am) Insulin Regimen: 56N/34R in AM 30R in PM 26N QHS P: May go home today as per [facility] Subjective - Subjective Date of service: 08/07/16 Principal diagnosis: IUP at 34 0/7 wks, Gest DM - controlled, Morbid Obesity, Grandmultip Interval history: Pt is feeling well and wants to go home. She denies contractions, ROM or bleeding. +FM Blood sugars 83-116 on Insulin Patient reports: new complaints, movement normal, no loss of fluid, no vaginal bleeding, no contractions Objective - Vital Signs Vital Signs: Vital Signs - 12hr 08/06/16 08/07/16 08/07/16 23:32 01:36 01:41 Temperature 98.0 F Pulse Rate 93 H 91 H 97 H Pulse Rate [ 97 H Right] Respiratory 20 Rate Blood Pressure 137/67 Blood Pressure 137/67 [Left Arm] O2 Sat by Pulse 97 97 Oximetry 08/07/16 08/07/16 08/07/16 01:46 01:51 04:02 Temperature Pulse Rate 94 H 90 98 H Pulse Rate [ Right] Respiratory Rate Blood Pressure 127/71 Blood Pressure [Left Arm] O2 Sat by Pulse 97 97 Oximetry 08/07/16 08/07/16 08/07/16 04:03 04:17 07:42 Temperature 98.1 F Pulse Rate 93 H 93 H Pulse Rate [ Right] Respiratory 20 Rate Blood Pressure 127/84 Blood Pressure [Left Arm] O2 Sat by Pulse 98 Oximetry - Exam Cardiovascular: Regular rate Lungs: Clear to auscultation Abdomen: Present: normal appearance, soft Uterus: Present: normal FHR: category 1 Uterine Contraction Monitor Mode: External Uterine Contraction Pattern: Absent - Labs Labs: Abnormal Labs 08/02/16 08/02/16 08/02/16 Unknown Unknown Unknown Hgb 8.8 L Hct 28.0 L MCV 69 L MCH 22 L RDW 23.9 H Seg Neutrophils % 72.5 H Sodium 133 L Potassium 3.4 L Chloride 96.6 L BUN 5 L Creatinine 0.6 L Glucose 273 H POC Glucose Hemoglobin A1c 7.4 H Calcium 8.2 L Albumin 2.8 L 08/03/16 08/03/16 08/03/16 00:07 06:28 11:37 Hgb Hct MCV MCH RDW Seg Neutrophils % Sodium Potassium Chloride BUN Creatinine Glucose POC Glucose 228 H 191 H 169 H Hemoglobin A1c Calcium Albumin 08/03/16 08/03/16 08/04/16 16:36 21:57 06:33 Hgb Hct MCV MCH RDW Seg Neutrophils % Sodium Potassium Chloride BUN Creatinine Glucose POC Glucose 154 H 182 H 150 H Hemoglobin A1c Calcium Albumin 08/04/16 08/04/16 08/04/16 10:42 13:33 18:46 Hgb Hct MCV MCH RDW Seg Neutrophils % Sodium Potassium Chloride BUN Creatinine Glucose POC Glucose 172 H 207 H 134 H Hemoglobin A1c Calcium Albumin 08/04/16 08/04/16 08/05/16 20:56 22:44 06:36 Hgb Hct MCV MCH RDW Seg Neutrophils % Sodium Potassium Chloride BUN Creatinine Glucose POC Glucose 200 H 174 H 145 H Hemoglobin A1c Calcium Albumin 08/05/16 08/05/16 08/06/16 10:42 18:43 10:33 Hgb Hct MCV MCH RDW Seg Neutrophils % Sodium Potassium Chloride BUN Creatinine Glucose POC Glucose 177 H 146 H 114 H Hemoglobin A1c Calcium Albumin 08/06/16 08/06/16 08/06/16 16:46 19:48 22:11 Hgb Hct MCV MCH RDW Seg Neutrophils % Sodium Potassium Chloride BUN Creatinine Glucose POC Glucose 107 H 116 H 68 L Hemoglobin A1c Calcium Albumin 08/06/16 23:25 Hgb Hct MCV MCH RDW Seg Neutrophils % Sodium Potassium Chloride BUN Creatinine Glucose POC Glucose 116 H Hemoglobin A1c Calcium Albumin Laboratory Results - last 24 hr 08/06/16 08/06/16 08/06/16 07:33 10:33 16:46 POC Glucose 99 114 H 107 H 08/06/16 08/06/16 08/06/16 19:48 22:11 23:25 POC Glucose 116 H 68 L 116 H 08/07/16 06:00 POC Glucose 83
--- NOTE | 2016-08-07 08:20 | Discharge Summary ---
Providers - Providers Date of Admission: 08/03/16 08:43 Date of discharge: 08/07/16 Attending physician: CLAY ELY MD 08/02/16 22:47 Consult to Dietitian/Nutrition [CONS] Routine Physician Instructions: Reason For Exam: Reason for Consult: Diet education 08/03/16 05:14 Consult to Physician [CONS] Routine Consulting Provider: BRAYDEN RAMIREZ Reason For Exam: Newly diagnosed Diabetic Place consult to:: Karina Notified:: A/S Phone number called:: [phone] Was contact made?: Yes If yes, spoke with:: SMITH Time called:: 07:27 Comment:: WILL CONTACT M.D. Primary care physician: CLAY ELY MD Hospitalization Reason for admission: IUP - (IUP @ 33 3/7 weeks), observation, other ( GDM - uncontrolled) Other procedures: none complications: none Discharge diagnosis: other (IUP @ 34 0/7 weeks; GDM - controlled) Pertinent studies: BPP 12/04 on 08/06/16 Hospital course: Pt is a 35-year-old BF admitted at 33+3 wks (oral hx of FRANSISCO 09/17/16) presented from the office of [facility] [employer] due to a history of noncompliance and recently diagnosed gestational diabetes. She was admitted for Observation and BS control which was regulated on Insulin. She is presently controlled on 56 NPH/34 Reg QAM; 30 Reg QPM and 26 NPH QHS. She was co-managed by [facility], and they recommended home surveillance at this time. She will follow up with [facility] and [facility] this week. Condition at discharge: Good Disposition: DISCHARGED TO HOME OR SELFCARE - Discharge Diagnoses (1) 33 weeks gestation of Status: Acute Plan - Discharge Medications Prescriptions: Insulin NPH, Human [NovoLIN N] 56 unit SUB-Q 0730 #120 units Insulin NPH, Human [NovoLIN N] 26 unit SUB-Q QHS #120 units Insulin Regular, Human [HumuLIN R] 34 units SUB-Q 0730 #120 units Insulin Regular, Human [HumuLIN R] 30 units SUB-Q 1630 #120 units - Provider Discharge Summary Activity: routine, no sex for 6 weeks, no heavy lifting 4 weeks, no strenuous exercise Diet: other (2200 tracy ADA) Additional instructions: [] Smoking cessation referral if applicable(refer to patient education folder for contact #) [] Refer to [employer] Booklet Call your doctor immediately for: * Fever > 100.5 * Heavy vaginal bleeding ( >1 pad per hour) * Severe persistent headache * Shortness of breath * Reddened, hot, painful area to leg or breast * Drainage or odor from incision. * Keep incision clean and dry at all times and follow doctor's instructions regarding bathing/showering Continue daily accuchecks - Follow up plan Follow up: CLAY CORTES MD [Primary Care Provider] - 3 Days ANDREW ALONSO MD [Staff Physician] - 3 Days
[2016-08-07] MEDS: COLACE PO SCH (10:50)
[2016-08-07] MEDS: FEOSOL PO SCH (10:50)
[2016-08-07] MEDS: HABITROL TD SCH (10:50)
[2016-08-07 11:32] VITALS: BP 133/69
== END 2016-08-07 12:15 | disposition home or self-care (01) | DRG 781 ==
LOC: TRG 21:54 → LD 08-03 01:31 → OBSVTOIN 08-03 08:43
PROVIDERS: ADMIT Obstetrics & Gynecology; ATTEND Obstetrics & Gynecology
DX: O99.213 Obesity complicating pregnancy, third trimester (principal); O24.419 Gestational diabetes mellitus in pregnancy, unspecified control; E66.01 Morbid (severe) obesity due to excess calories; O99.013 Anemia complicating pregnancy, third trimester; D64.9 Anemia, unspecified; O36.63X0 Maternal care for excessive fetal growth, third trimester, not applicable or unspecified; Z3A.33 33 weeks gestation of pregnancy; O09.43 Supervision of pregnancy with grand multiparity, third trimester; Z68.44 Body mass index [BMI] 60.0-69.9, adult; Z91.19 Patient's noncompliance with other medical treatment and regimen
CPT/HCPCS: 36415; 76805; 76819; 80053; 80307; 81001; 82962; 83036; 83615; 84450; 84460; 84550; 85025; 94660; J1815

== ENCOUNTER 2016-08-19 23:50 | Inpatient (IN) | payer MEDICAID ==
[2016-08-20] MEDS ORDERED: PITOCin/NS 20 UNIT/1000ML DRIP 20,000 MILLIUNITS/1,000 ML BAG IV ONE (00:14)
[2016-08-20] MEDS ORDERED: LACTATED RINGERS 1,000 ML ONE (00:14)
[2016-08-20] MEDS ORDERED: POLYCILLIN/NS 2 GM/100 ML 2 GM/100 ML BAG IV ONE ×2 (00:31→00:35)
[2016-08-20] MEDS ORDERED: MINERAL OIL PO PRN (00:35)
[2016-08-20] MEDS ORDERED: XYLOCAINE 2% INFILTRATI ONE (00:35)
[2016-08-20] MEDS ORDERED: PHENERGAN PO PRN ×2 (00:35→01:51)
[2016-08-20] MEDS ORDERED: ZOFRAN IV PRN ×2 (00:35→01:51)
[2016-08-20] MEDS ORDERED: SUBLIMAZE IV PRN (00:35)
[2016-08-20] MEDS ORDERED: BRETHINE IVP PRN (00:35)
[2016-08-20] MEDS ORDERED: ePHEDrine SULFATE IV PRN (00:35)
[2016-08-20] MEDS ORDERED: STADOL IV PRN (00:35)
[2016-08-20] MEDS ORDERED: BRETHINE SUB-Q PRN (00:35)
--- NOTE | 2016-08-20 00:39 | History and Physical Report ---
History of Present Illness Date of examination: 08/20/16 Date of admission: 08/20/16 00:09 Chief complaint: Labor History of present illness: Pt is a 35yo BF EDC 09/17/16; EGA 36 0/7 weeks presents to L&D complaining of SROM clear fluid followed by regular contractions. 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 records are available and GBS Negative. 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 History: herpes Family/Genetic History: diabetes Social history: no significant social history, single, smoking - Obstetrical History Expected Date of Delivery: 09/17/16 Actual Gestation: 36 Week(s) 0 Day(s) : 9 Medications and Allergies Allergies Allergy/AdvReac Type Severity Reaction Status Date / Time No Known Allergies Allergy Verified 08/20/16 00:36 Home Medications Medication Instructions Recorded Confirmed Last Taken Type Docusate Sodium [Colace] 100 mg PO QDAY 08/04/16 08/20/16 08/19/16 11:00 History Ergocalciferol(Vitamin D2)(Nf) 400 unit PO QDAY 08/04/16 08/20/16 08/19/16 11: 00 History [Vitamin D (Nf)] Ferrous Sulfate [Feosol] 325 mg PO QDAY 08/04/16 08/20/16 08/19/16 11:00 History Vit-Fe Fumar-FA [ 1 tab PO QDAY 08/04/16 08/20/16 08/19/16 09: 00 History Vitamin] Insulin NPH, Human [NovoLIN N] 26 unit SUB-Q QHS #120 units 08/07/16 08/20/16 23:00 Rx Insulin NPH, Human [NovoLIN N] 50 unit SUB-Q 0730 08/20/16 08/20/16 08/19/16 11: 00 History Insulin Regular, Human [HumuLIN R] 20 units SUB-Q QPM 08/20/16 08/20/16 23:00 History Insulin Regular, Human [HumuLIN R] 24 units SUB-Q QAM 08/20/16 08/20/16 11:00 History Active Meds: Active Medications Butorphanol Tartrate (Stadol) 2 mg IV Q2H PRN PRN Reason: Pain , Severe (7-10) Ephedrine Sulfate (Ephedrine Sulfate) 10 mg IV Q2M PRN PRN Reason: Hypotension Stop: 08/20/16 00:40 Fentanyl (Sublimaze) 100 mcg IV Q2H PRN PRN Reason: Labor Pain Ampicillin Sodium (Polycillin/Ns 1 Gm/50 Ml) 1 gm in 50 mls @ 100 mls/hr IV Q4HR PAULINE PRN Reason: Protocol Ampicillin Sodium (Polycillin/Ns 2 Gm/100 Ml) 2 gm in 100 mls @ 100 mls/hr IV ONCE ONE PRN Reason: Protocol Stop: 08/20/16 01:34 Lactated Ringer's (Lactated Ringers) 1,000 mls @ 125 mls/hr IV DIRECT PAULINE Oxytocin/Sodium Chloride (Pitocin/Ns 20 Unit/1000ml Drip) 20 units in 1,000 mls @ 125 mls/hr IV DIRECT PAULINE Oxytocin/Sodium Chloride (Pitocin/Ns 30 Unit/500ml) 30 units in 500 mls @ 1 mls /hr IV TITR PAULINE; 1 MILLIUNITS/MIN PRN Reason: Protocol Lidocaine (Xylocaine 2%) 20 ml INFILTRATI ONCE ONE Stop: 08/20/16 00:36 Mineral Oil (Mineral Oil) 30 ml PO QHS PRN PRN Reason: Constipation Ondansetron HCl (Zofran) 4 mg IV Q8H PRN PRN Reason: Nausea And Vomiting Promethazine HCl (Phenergan) 25 mg PO Q6H PRN PRN Reason: Nausea And Vomiting Terbutaline Sulfate (Brethine) 0.25 mg SUB-Q ONCE PRN PRN Reason: Hyperstimulation/Hypertonicity Stop: 08/20/16 00:36 Terbutaline Sulfate (Brethine) 0.25 mg IVP ONCE PRN PRN Reason: Hyperstimulation/Hypertonicity Stop: 08/20/16 00:36 Review of Systems All systems: negative - Vital Signs Vital signs: Vital Signs Pulse Pulse Ox 108 H 98 08/20/16 00:19 08/20/16 00:19 Temp Pulse Resp BP Pulse Ox 98.1 F 111 H 20 109/56 97 08/20/16 00:23 08/20/16 00:34 08/20/16 00:23 08/20/16 00:25 08/20/16 00:34 - Physical Exam Breasts: Positive: deferred Cardiovascular: Regular rate Lungs: Positive: Clear to auscultation Abdomen: Positive: normal appearance, soft Genitourinary (Female): Positive: normal external genitalia Uterus: Positive: enlarged Extremities: Positive: normal - Obstetrical FHR: category 1 Uterine Contraction Monitor Mode: External Cervical Dilatation: 10 Cervical Effacement Percentage: 100 station: -3 Uterine Contraction Pattern: Regular Uterine Tone Measurement Phase: Contraction Uterine Contraction Intensity: Moderate Results Result Diagrams: 08/19/16 23:58 All other labs normal. Ultrasound: report reviewed (cephalic) Assessment and Plan - Patient Problems (1) 36 weeks gestation of Onset Date: 08/20/16 Current Visit: Yes Status: Acute Plan to address problem: A: IUP @ 36 0/7 weeks in labor Gestational Diabetes - Insulin controlled Morbid Obesity Grandmultiparity P: Admit to L&D for expectant vaginal delivery (2) Grand multipara in labor in third trimester Onset Date: 08/20/16 Current Visit: Yes Status: Acute (3) Morbid obesity with BMI of 60.0-69.9, adult Onset Date: 08/20/16 Current Visit: Yes Status: Chronic (4) Gestational diabetes mellitus (GDM) affecting Onset Date: 08/20/16 Current Visit: Yes Status: Chronic
[2016-08-20 00:56] LABS: Hematocrit 31.8 % (30.3-42.9); Hemoglobin 9.9 gm/dl (10.1-14.3); Mean Corpuscular HGB Conc 31 % (30-34); Mean Corpuscular Volume 73 fl (79-97); Platelet Count 220 K/mm3 (140-440); Red Blood Count 4.33 M/mm3 (3.65-5.03)
[2016-08-20 00:57] LABS: Mean Corpuscular Hemoglobin 23 pg (28-32); Red Cell Distribution Width 27.8 % (13.2-15.2)
[2016-08-20] MEDS ORDERED: LACTATED RINGERS 1,000 ML IV SCH (01:00)
[2016-08-20] MEDS ORDERED: PITOCin/NS 20 UNIT/1000ML DRIP 20 UNITS/1,000 ML BAG IV SCH ×2 (01:00→02:00)
[2016-08-20] MEDS ORDERED: PITOCin/NS 30 UNIT/500ML 30 UNITS/500 ML BAG IV SCH (01:00)
--- NOTE | 2016-08-20 01:34 | Procedure Note ---
OB Delivery Note - Delivery Date of Delivery: 08/20/16 Surgeon: CLAY CORADO Estimated blood loss: 100cc - Vaginal Delivery presentation: vertex Delivery position: OA Intrapartum events: labor-<37 weeks, hydramnios, precipitous labor- <3hr Delivery induction: none Delivery augmentation: rupture of membranes Delivery monitor: external FHT, external uterine Route of delivery: Delivery placenta: spontaneous Delivery cord: 3 umbilical vessels Episiotomy: none Delivery laceration: none Anesthesia: none Delivery comments: Infant delivered OA and placed on Mom's chest for [id number] and delayed cord clamping. - A at 1 minute: 8 at 5 minutes: 9 Gender: Female ([id number])
[2016-08-20] MEDS ORDERED: DULCOLAX PR PRN (01:51)
[2016-08-20] MEDS ORDERED: NORCO 5/325 PO PRN (01:51)
[2016-08-20] MEDS ORDERED: BENADRYL PO PRN (01:51)
[2016-08-20] MEDS ORDERED: TYLENOL PO PRN (01:51)
[2016-08-20] MEDS ORDERED: MILK OF MAGNESIA PO PRN (01:51)
[2016-08-20] MEDS ORDERED: TUCKS PAD TP PRN (01:51)
[2016-08-20] MEDS ORDERED: DERMOPLAST TP PRN (01:51)
[2016-08-20] MEDS ORDERED: LANSINOH TP PRN (01:51)
[2016-08-20] MEDS ORDERED: PHENERGAN PR PRN (01:51)
[2016-08-20] MEDS ORDERED: D50W (25GM) IV PRN (01:51)
[2016-08-20] MEDS ORDERED: SODIUM CHLORIDE FLUSH SYRINGE 10 ML IV NR (02:00)
[2016-08-20] MEDS ORDERED: POLYCILLIN/NS 1 GM/50 ML 1 GM/50 ML BAG IV SCH (04:36)
[2016-08-20] MEDS: MOTRIN PO SCH ×3 (05:35→23:56)
[2016-08-20] MEDS ORDERED: SENOKOT S PO SCH (06:00)
--- NOTE | 2016-08-20 07:57 | Ultrasound Report ---
ULTRASOUND OB LIMITED History: well-being, determine presentation Technique: Transabdominal ultrasound with Doppler interrogation. Gestation: Single Position: Cephalic Heart Rate: 138 BPM
[2016-08-20] MEDS ORDERED: COLACE PO SCH (10:00)
[2016-08-20] MEDS: PRENATAL VITAMIN PO SCH (10:01)
[2016-08-20] MEDS: FEOSOL PO SCH ×2 (10:01→21:31)
[2016-08-20 18:40] LABS: Hematocrit 27.3 % (30.3-42.9); Hemoglobin 8.5 gm/dl (10.1-14.3)
[2016-08-21] MEDS: MOTRIN PO SCH ×3 (05:49→17:54)
[2016-08-21] MEDS ORDERED: M-M-R II VACCINE SUB-Q ONE (06:00)
[2016-08-21] MEDS ORDERED: BOOSTRIX IM ONE (06:05)
[2016-08-21] MEDS: FEOSOL PO SCH (10:09)
[2016-08-21] MEDS: PRENATAL VITAMIN PO SCH (10:09)
--- NOTE | 2016-08-21 12:21 | Progress Note ---
Assessment and Plan A: PPD1 Mild anemia Baby placed for adoption P: Routine care Contraception: Depo desired until BTL D/C today pending exam. Subjective - Subjective Date of service: 08/21/16 Principal diagnosis: PPD1 Interval history: Pt is a 35yo BF EDC 09/17/16; EGA 36 0/7 weeks presented to L&D complaining of SROM clear fluid followed by regular contractions. Cx 10/100/V/- 3 [facility] weeks and course significant for Gestational Diabetes Mellitus Insulin controlled and Morbid Obesity. records are available and GBS Negative. Pt delivered on 08/20/16 @ 0130. is in NICU with adoptive parents visiting. Ptis on sliding scale insulin for blood glucose management. Patient reports: appetite normal, voiding normally, pain well controlled, ambulating normally : in NICU Objective - Vital Signs Latest vital signs: Vital Signs Temp Pulse Resp BP 08/21/16 08:06 97.4 F L 86 16 124/47 08/21/16 00:00 97.5 F L 86 20 115/64 08/20/16 16:27 97.6 F 86 18 97/50 08/20/16 13:01 97.8 F 90 20 118/56 Intake and Output 08/20/16 08/21/16 08/21/16 22:59 06:59 14:59 Intake Total 600 Balance 600 Intake: Oral 600 Other: Total, Intake Amount 240 # Voids Void 1 1 - Exam Comments: Pt out of room x 3 visits, not in NICU with baby nor in the lobby or outside with daughter. Will attempt to see again later. - Labs Labs: Abnormal lab results 08/20/16 08/20/16 08/20/16 Range/Units 12:05 18:24 21:34 Hgb 8.5 L (10.1-14.3) gm/dl Hct 27.3 L (30.3-42.9) % POC Glucose 126 H 159 H (70-105) 08/21/16 Range/Units 08:07 Hgb (10.1-14.3) gm/dl Hct (30.3-42.9) % POC Glucose 119 H (70-105) - Allied health notes Allied health notes reviewed: nursing
--- NOTE | 2016-08-21 12:40 | Admit Criteria Form ---
Admission Criteria Documentation: DIABETES IN Clinical Indications for Admission to Inpatient Care (Place "X" for any and all applicable criteria): Admission is indicated by presence of ALL of the following(1)(2)(3): [ ]I. Diabetes is uncontrolled or needs urgent intervention as indicated by ANY ONE of the following: [ ]a) Ketoacidosis [ ]b) Hyperglycemia associated with volume depletion [ ]c) Persistent hyperglycemia, unresponsive to outpatient intervention [ ]d) Vomiting not controlled by outpatient therapy [ ]e) Rapid initiation of metabolic control needed to improve maternal and outcome [ ]f) Hypoglycemia not readily reversed by outpatient or emergency department care [ ]II. Management at other levels of care (See General Criteria: Observation Care) is not feasible because of ANY ONE of the following: [ ]a) Condition was not adequately corrected with treatment at other levels of care. [ ]b) Treatment at other levels of care is not appropriate because of condition severity (eg, hyperosmolar coma). Extended stay beyond goal length of stay may be needed for(1)(3)(18): [ ]a) Underlying infection [ ]b) Unstable glycemic control, particularly in patients with pre-existing diabetes [ ]c) Continued hypovolemia, acidosis, or electrolyte correction(17) [ ]d) Persistent nausea and vomiting(2) [ ]e) Associated obstetric comorbidities (eg, labor, preeclampsia)(19) (20) The original [employer] content created by [employer] has been revised. The portions of the content which have been revised are identified through the use of italic text or in bold, and [facility] has neither reviewed nor approved the modified material. All other unmodified content is copyright [employer]. Please see references footnoted in the original [employer] edition 2016 OBSTETRIC AND GYNECOLOGIC DISEASE GR[facility] Clinical Indications for Admission to Inpatient Care (Place 'X' for any and all applicable criteria): Hospital admission is needed for appropriate care of the patient because of 1 or more of the following (1)(2)(3): [ ]I. Hemodynamic instability, as indicated by 1 or more of the following (1)( 2)(3)(4)(5): [ ]a) Vital signs or other findings not as expected for chronic patient condition or baseline [ ]b) Instability indicated by 1 or more of the following: [ ]i) Hypotension [ ]ii) Symptomatic tachycardia unresponsive to treatment (eg, analgesia, fluids, sedation as indicated) [ ]iii) Inadequate perfusion indicated by 1 or more of the following: [ ]A. Lactic acidosis (greater than 2 mmol/ L) [ ]B. New abnormal capillary refill ( greater than 3 seconds) [ ]C. Reduced urine output [ ]D. New altered mental status [ ]iv) Orthostatic vital sign changes unresponsive to treatment (eg, fluids) [ ]v) Multiple IV fluid boluses required to maintain adequate blood pressure or perfusion [ ]vi) IV inotropic or vasopressor medication required to maintain adequate blood pressure or perfusion [ ]II. Obstetric infection requiring hospitalization indicated by 1 or more of the following(13)(14): [ ]a) Chorioamnionitis [ ]b) Endometritis (except mild endometritis) [ ]c) Pelvic abscess [ ]d) Peritonitis [ ]e) Septic pelvic thrombophlebitis [ ]III. Amniotic fluid or pulmonary embolism(4)(5)(6) [ ]IV. Suspected peritonitis or ectopic requiring monitoring beyond scope of 24 hours or observation care(7)(8) [ ]V. compromise requiring hospitalization indicated by ALL of the following(9)(10): [ ]a) compromise indicated by 1 or more of the following(11): [ ]i) Abnormal heart rate monitoring [ ]ii) Abnormal contraction stress test [ ]iii) Abnormal biophysical profile [ ]iv) Abnormal Doppler flow in vessels (ie, Doppler velocimetry) (12) [ ]b) Persistence of compromise indicators during evaluation and observation monitoring [ ]. Ovarian hyperstimulation syndrome requiring hospitalization[A] indicated by ALL of the following(15): [ ]a) Recent ovarian stimulation with gonadotropins, or evidence on ultrasound of spontaneous emergence of large number of ovarian follicles [ ]b) Evidence of severe ovarian hyperstimulation syndrome indicated by 1 or more of the following: [ ]i) Abdominal pain unresponsive to oral therapy [ ]ii) Acute respiratory distress syndrome [ ]iii) Electrolyte imbalance ( eg, hyponatremia, hyperkalemia) [ ]iv) Elevated liver enzymes [ ]v) Evidence of thromboembolism [ ]vi) Hemoconcentration (hematocrit greater than 45 % (0.45)) [ ]vii) Inability to maintain oral intake adequate to prevent hemoconcentration [ ]viii) Marked hypotension from baseline (eg, SBP 20 mmHg below patients usual pressure) [ ]ix) Oliguria or anuria [ ]x) Ovarian torsion [ ]xi) Pleural or pericardial effusion on x-ray or echocardiogram [ ]xii) Rapid increase in serum creatinine to greater than 1.2 mg/dL (106 micromoles/L) or creatinine clearance less than 50 mL/min/1.73m2 (0.84 mL/ sec/1.73m2) [ ]xiii) Ruptured ovarian cyst with hemorrhage [ ]xiv) Severe abdominal pain or peritoneal signs [ ]xv) Tense ascites that cannot be managed with paracentesis in outpatient setting [ ]VII.Pelvic infection requiring hospitalization indicated by 1 or more of the following (16): [ ]a) Outpatient treatment has failed or is not appropriate (eg, inpatient monitoring required) [ ]b) Pelvic abscess [ ]c) Surgical emergency cannot be excluded (eg, rigid abdomen) [ ]d) Vomiting precluding outpatient and observation care management VIII. loss complications requiring inpatient medical treatment indicated by 1 or more of the following (4)(7)(9): [ ]a) Fever [ ]b) Peritonitis [ ]c) Sepsis [ ]d) Severe abdominal pain [ ]IX. or patient requiring monitoring for severe heart failure, pulmonary disease, or other comorbid condition (eg, peripartum cardiomyopathy) (4)(17) [ ]X. patient with rupture of membranes requiring hospitalization indicated by ANY ONE of the following: [ ]a) Chorioamnionitis, cloudy amniotic fluid, or other evidence of infection [ ]b) compromise or other need for monitoring (11) [ ]c) Gestation longer than 23 weeks and ANY ONE of the following: [ ]i) Abnormal (noncephalic) presentation [ ]ii) Inadequate home environment (eg, home too far from hospital, unable to rapidly return to hospital) [ ]d) Temperature greater than 100.4 degrees F (38 degrees C)( oral) [ ]e) Threatened labor requiring monitoring beyond scope (eg, over 24 hours) of observation Care [ ] XI. complications, including severe lacerations, infections, or retained placenta (19) [ ] XII.Uterine bleeding with high-risk features indicated by ANY ONE of the following (4): [ ]a) Active major hemorrhage (eg, hemorrhage) [ ]b) Coagulopathy with active bleeding [ ]c) Gestational trophoblastic disease (eg, molar ) (20 ) [ ]d) (longer than 23 weeks) and ANY ONE of the following: [ ]i) Pain [ ]ii) Placental abruption, known or suspected [ ]iii) Placenta accrete, known or suspected(21) [ ]iv) Placenta previa, known or suspected [ ]v) Vasa previa [ ]e) Severe anemia [X]XIII. Obstetric or Gynecologic Disease, condition or symptom for which ANY ONE of the following: [X]a) Emergency and observation care have failed or are not considered appropriate ( Also use General Criteria: Observation Care Criteria as appropriate) [ ]b) Presence of a General Admission Criteria or Pediatric General Admission Criteria The original [facility] content created by [facility] has been revised. The portions of the content which have been revised are identified through the use of italic text or in bold, and [facility] has neither reviewed nor approved the modified material.All other unmodified content is copyright [facility]. Please see references footnoted in the original [facility] edition 2016 Admission Criteria Met: Yes
--- NOTE | 2016-08-21 18:32 | Discharge Summary ---
Providers - Providers Date of Admission: 08/20/16 00:09 Date of discharge: 08/21/16 Attending physician: CLAY ELY MD Primary care physician: CLAY ELY MD Hospitalization Reason for admission: IUP - , rupture of membranes Delivery: Incision: normal Other procedures: none complications: none Disposition: STILL A PATIENT Plan - Provider Discharge Summary Activity: routine, no sex for 6 weeks, no heavy lifting 4 weeks, no strenuous exercise Diet: routine Instructions: routine Additional instructions: [] Smoking cessation referral if applicable(refer to patient education folder for contact #) [] Refer to [facility] Booklet Call your doctor immediately for: * Fever > 100.5 * Heavy vaginal bleeding ( >1 pad per hour) * Severe persistent headache * Shortness of breath * Reddened, hot, painful area to leg or breast * Drainage or odor from incision. * Keep incision clean and dry at all times and follow doctor's instructions regarding bathing/showering - Follow up plan Follow up: [facility] [Provider Group] - 14 Days
[2016-08-21] MEDS ORDERED: DEPO-PROVERA (CONTRACEPTION) IM ONE (19:00)
[2016-08-21] MEDS ORDERED: FLUARIX QUAD 2016-2017(36 MOS+) IM ONE (19:00)
[2016-08-21 22:45] VITALS: BP 140/77
== END 2016-08-21 21:25 | disposition home or self-care (01) | DRG 775 ==
LOC: TRG 23:50 → LD 08-20 00:09 → TRG 08-20 00:09 → OB 08-20 02:46
PROVIDERS: ADMIT Obstetrics & Gynecology; ATTEND Obstetrics & Gynecology
PROC: 10E0XZZ Delivery of Products of Conception, External Approach (ICD-10-PCS; principal; 2016-08-20)
DX: O24.424 Gestational diabetes mellitus in childbirth, insulin controlled (principal); O60.14X0 Preterm labor third trimester with preterm delivery third trimester, not applicable or unspecified; O99.214 Obesity complicating childbirth; E66.01 Morbid (severe) obesity due to excess calories; O62.3 Precipitate labor; O40.3XX0 Polyhydramnios, third trimester, not applicable or unspecified; O99.354 Diseases of the nervous system complicating childbirth; F31.9 Bipolar disorder, unspecified; O90.81 Anemia of the puerperium; D64.9 Anemia, unspecified; Z3A.36 36 weeks gestation of pregnancy; Z37.0 Single live birth; Z68.44 Body mass index [BMI] 60.0-69.9, adult; O09.43 Supervision of pregnancy with grand multiparity, third trimester; Z79.4 Long term (current) use of insulin; Z83.3 Family history of diabetes mellitus
CPT/HCPCS: 36415; 76815; 82962; 85014; 85018; 85027; 86850; 86900; 86901; 88307; 90471; 90686; 90715; 99406; G0008; J0290; J1050; J1815; J2590; J3010; J7120